=== PATIENT | female | born 1950 | race Caucasian/White ===

== ENCOUNTER 2022-10-21 00:34 | Emergency (ER) | payer OTHER ==
[~2022-10-21] VITALS: Ht 157.5 cm; Wt 74.8 kg
[2022-10-21] MEDS ORDERED: LORAZEPAM 0.5 MG TABLET PO ONE (01:00)
[2022-10-21] MEDS ORDERED: LORAZEPAM 1 MG TABLET ONE (01:11)
[2022-10-21] MEDS ORDERED: OXYCODONE/APAP 5-325 MG TABLET PO ONE (01:30)
[2022-10-21] MEDS ORDERED: OXYCODONE/APAP 5-325 MG TABLET ONE (01:36)
[2022-10-21 02:11] LABS: HEMATOCRIT 39.5 % (31.2-41.9); MEAN CORPUSCULAR HEMOGLOBIN 31.2 uug (24.7-32.8); PLATELET COUNT (AUTO) 146 K/uL (179-408)
[2022-10-21 02:21] LABS: CREATININE 0.7 mg/dL (0.6-1.3); POTASSIUM 3.5 mmol/L (3.5-5.1)
[2022-10-21] MEDS ORDERED: KETOROLAC TROMETHAMINE 30 MG INJ IVP ONE (04:00)
[2022-10-21] MEDS ORDERED: LORA0.5T48 PO (04:10)
[2022-10-21] MEDS ORDERED: MELO-107 PO (04:10)
[2022-10-21] MEDS ORDERED: KETOROLAC TROMETHAMINE 30 MG INJ ONE (04:20)
--- NOTE | 2022-10-21 04:30 | NUR ---
Patient discharged to home in stable condition. Written and verbal after care instructions given. Patient verbalizes understanding of instructions. Stressed follow up or return to ER for worsening s/s. Patient out of ER with steady gait, no acute signs of distress, VSS, all belongings taken provided with copies of lab results.
[2022-10-21 04:31] VITALS: BP 147/81; O2SAT 96
== END 2022-10-21 05:48 | disposition home or self-care (01) ==
LOC: ER 00:34
DX: F41.9 Anxiety disorder, unspecified (principal); G89.29 Other chronic pain; R68.84 Jaw pain; Z88.5 Allergy status to narcotic agent; Z88.2 Allergy status to sulfonamides; Z79.899 Other long term (current) drug therapy
CPT/HCPCS: 99283; 96374; 80048; 82607; 83735; 85025; 36415; J1885; A4663